=== PATIENT | male | born 1945 | race Caucasian/White ===

== ENCOUNTER → 2017-11-16 | Outpatient (CLI) | payer OTHER | LOC: BHFA 08:30 | PROVIDERS: ATTEND Internal Medicine Cardiovascular Disease | DX: I25.10 Atherosclerotic heart disease of native coronary artery without angina pectoris (principal) | CPT/HCPCS: 78452; 93017; A9500 ==

== ENCOUNTER → 2019-02-01 | Outpatient (CLI) | payer OTHER | LOC: BMCIMAGING 08:13 | PROVIDERS: ATTEND Physician Assistant | DX: M25.562 Pain in left knee (principal); M25.862 Other specified joint disorders, left knee ==

== ENCOUNTER → 2019-03-10 | Outpatient (CLI) | payer OTHER | LOC: FIMAGING 07:46 | PROVIDERS: ATTEND Physician Assistant | DX: M23.222 Derangement of posterior horn of medial meniscus due to old tear or injury, left knee (principal); M24.10 Other articular cartilage disorders, unspecified site; M25.462 Effusion, left knee ==